=== PATIENT | female | born 1965 | race Caucasian/White ===

== ENCOUNTER 2022-12-16 08:37 | Day surgery (SDC) | payer OTHER ==
[2022-12-15 15:42] VITALS: BMI 35.4
[2022-12-16] MEDS ORDERED: Ipratropium/Albuterol 3 ML NEB ONE ×2 (10:39→14:30)
[2022-12-16] MEDS ORDERED: Oxymetazoline HCl 0.05% (30 ML BOT) ONE ×2 (10:39→10:42)
[2022-12-16] MEDS ORDERED: Fentanyl 250 MCG/5 ML VIAL ONE (10:40)
[2022-12-16] MEDS ORDERED: Lidocaine 1% (PF) 30 ML VIAL ONE (10:42)
[2022-12-16] MEDS ORDERED: EPINEPHrine 1 MG/ML AMP ONE ×2 (10:42→12:31)
[2022-12-16 10:44] LABS: Hematocrit 42.5 % (36.0-47.0)
[2022-12-16] MEDS ORDERED: Midazolam HCl 2 mg/2 ml Vial ONE (12:08)
[2022-12-16] MEDS ORDERED: Lidocaine 1% PF 5 ML VIAL ONE (12:17)
[2022-12-16] MEDS ORDERED: Dexamethasone 20 MG/5 ML VIAL ONE (12:17)
[2022-12-16] MEDS ORDERED: PROPOFOL 200 MG/20 ML VIAL ONE (12:17)
[2022-12-16] MEDS ORDERED: Ondansetron PF 4 MG/2 ML Vial ONE (12:17)
[2022-12-16] MEDS ORDERED: fentaNYL 50 mcg/mL 1 mL Vial ONE ×2 (13:25→13:26)
[2022-12-16] MEDS ORDERED: hydrALAZINE 20 MG/ML VIAL ONE (14:48)
[2022-12-16] MEDS ORDERED: Acetaminophen 500 MG TAB ONE (15:16)
== END 2022-12-16 15:45 | disposition home or self-care (01) ==
LOC: SDC 08:37
PROVIDERS: ATTEND Specialist
PROC: 099T8ZZ Drainage of Left Frontal Sinus, Via Natural or Artificial Opening Endoscopic (ICD-10-PCS; principal; 2022-12-16)
PROC: 099U8ZZ Drainage of Right Ethmoid Sinus, Via Natural or Artificial Opening Endoscopic (ICD-10-PCS; principal; 2022-12-16)
PROC: 09BL8ZZ Excision of Nasal Turbinate, Via Natural or Artificial Opening Endoscopic (ICD-10-PCS; principal; 2022-12-16)
PROC: 099W8ZZ Drainage of Right Sphenoid Sinus, Via Natural or Artificial Opening Endoscopic (ICD-10-PCS; principal; 2022-12-16)
PROC: 099R8ZZ Drainage of Left Maxillary Sinus, Via Natural or Artificial Opening Endoscopic (ICD-10-PCS; principal; 2022-12-16)
PROC: 099S8ZZ Drainage of Right Frontal Sinus, Via Natural or Artificial Opening Endoscopic (ICD-10-PCS; principal; 2022-12-16)
PROC: 8E09XBZ Computer Assisted Procedure of Head and Neck Region (ICD-10-PCS; principal; 2022-12-16)
PROC: 099V8ZZ Drainage of Left Ethmoid Sinus, Via Natural or Artificial Opening Endoscopic (ICD-10-PCS; principal; 2022-12-16)
PROC: 099Q8ZZ Drainage of Right Maxillary Sinus, Via Natural or Artificial Opening Endoscopic (ICD-10-PCS; principal; 2022-12-16)
PROC: 099X8ZZ Drainage of Left Sphenoid Sinus, Via Natural or Artificial Opening Endoscopic (ICD-10-PCS; principal; 2022-12-16)
DX: J35.01 Chronic tonsillitis (principal); J34.3 Hypertrophy of nasal turbinates; H69.93 Unspecified Eustachian tube disorder, bilateral; J01.01 Acute recurrent maxillary sinusitis; J01.11 Acute recurrent frontal sinusitis; J01.21 Acute recurrent ethmoidal sinusitis; J01.31 Acute recurrent sphenoidal sinusitis; H93.8X3 Other specified disorders of ear, bilateral; Z90.49 Acquired absence of other specified parts of digestive tract; Z98.51 Tubal ligation status; Z90.710 Acquired absence of both cervix and uterus; Z98.890 Other specified postprocedural states; Z79.899 Other long term (current) drug therapy; Z88.0 Allergy status to penicillin; Z88.5 Allergy status to narcotic agent; Z88.1 Allergy status to other antibiotic agents
CPT/HCPCS: 85014; 93005; 93010; C1726; J0171; J0360; J1100; J2001; J2250; J2405; J2704; J3010; J7620